=== PATIENT | female | born 1950 | race Caucasian/White ===

== ENCOUNTER 2024-12-28 15:50 | Emergency (ER) | payer MEDICARE, BC ==
[~2024-12-28] VITALS: Ht 152.4 cm; Wt 43.5 kg
[2024-12-28 17:57] VITALS: BP 154/62
[2024-12-28 19:00] VITALS: BP 160/67; O2SAT 95
== END 2024-12-28 19:00 | disposition home or self-care (01) ==
LOC: ER 15:56
DX: S52.611A Displaced fracture of right ulna styloid process, initial encounter for closed fracture (principal); S52.91XA Unspecified fracture of right forearm, initial encounter for closed fracture; X58.XXXA Exposure to other specified factors, initial encounter; Y93.89 Activity, other specified; Y92.89 Other specified places as the place of occurrence of the external cause; Y99.9 Unspecified external cause status
CPT/HCPCS: 73110; A4606; A4663

== ENCOUNTER 2024-12-29 10:32 | Emergency (ER) | payer MEDICARE, BC ==
[~2024-12-29] VITALS: Ht 147.3 cm; Wt 40.8 kg
[2024-12-29 10:42] VITALS: BP 109/50
[2024-12-29 11:45] VITALS: BP 110/53; O2SAT 95
== END 2024-12-29 11:45 | disposition home or self-care (01) ==
LOC: ER 10:32
DX: Z46.89 Encounter for fitting and adjustment of other specified devices (principal)
CPT/HCPCS: A4606; A4663